=== PATIENT | female | born 1965 | race Caucasian/White ===

== ENCOUNTER 2021-06-19 10:56 | Outpatient (REF) | payer OTHER, SELFPAY ==
--- NOTE | 2021-06-21 10:45 | MHC.AU.ANO ---
Adult Audiological Evaluation Date of Visit: 06/19/21 Personnel Administrator Used: Not Applicable Reason for Appointment: Audiologic evaluation due to tinnitus and dizziness. Glendy reports constant bilateral hissing tinnitus and she has experienced significant dizziness with nausea for approximately 25 years which occurs on a daily basis when looking up or bending over. She notes intermittent extended episodes of up to 3 days. Hearing ability seems poorer in the left ear compared to the right, with speech understanding difficulty particularly when background noise is present. Glendy notes she has an appointment scheduled next month with [employer] Dr. Darren Rich. Does patient feel they have a hearing loss?: Unsure Has hearing been tested previously?: No Hearing Handicap Inventory: HHIE SCORE: 18 Based on HHIE score, patient has: Mild to moderate perceived hearing handicap Ear History: Family History of Hearing Loss?: Yes: Father (left ear) Tinnitus/Ringing/Noises in Ears: Both Ears Ear used on the phone: Right Ear History of occupational noise exposure?: Bartended for 7 years with exposure to loud music History: History: No Medical History: Medical History: Occular migraines, Tobacco Use Medication List: Wellbutrin and Zoloft Otoscopy: Right Ear: Unremarkable Left Ear: Unremarkable Tympanometry: Tympanometry performed due to: To assess integrity of the middle ear system Right Ear: Normal Middle Ear System (Type A) Left Ear: Normal Middle Ear System (Type A) Acoustic Reflexes: Did not perform due to loud sound in the left ear causing ear pain and dizzy sensation Otoacoustic Emissions Frequency Range Used: 1.6-8 kHz Right Ear Results: Present 1977-7305 Hz. Absent 6957-8354 Hz. Analysis: Reduced/Absent emissions suggest cochlear dysfunction Left Ear Results: Present 1600. Absent 8136-5060 Hz. Analysis: Reduced/Absent emissions suggest cochlear dysfunction Hearing Evaluation: Transducer(s) Used: Insert Earphones Bone Conduction Method: Conventional Audiometry Stimuli Used: Pure Tones Right Ear: Description of Hearing: Mild sensorineural hearing loss 250-8000 Hz. Left Ear: Description of Hearing: Mild sloping to moderate sensorineural hearing loss. Speech Recognition Threshold (SRT): Method Used: Monitored Live Voice Stimuli Used: Spondee Words Right Ear: 20 dB HL Left Ear: 30 dB HL Word Discrimination: Method: Recorded Lists Word Lists Used: NU-6 Right Ear: 100% at 60 dB HL Left Ear: 84% at 70 dB HL - GLENDY REPORTED SIGNIFICANT SOUND TOLERANCE DIFFICULTY WITH EAR PAIN AND VERTIGO SENSATION AT THIS LEVEL 100% at 60 dB HL Interpretation of Results: Results indicate asymmetric hearing loss, left ear poorer, with sound tolerance and vertigo sensation experienced at 70 dB HL. Recommendations: - I contacted Dr. Darren Rich's office following today's appointment regarding the results. Due to the asymmetry and symptoms presented today, further work-up is advised. Since Glendy's symptoms are bothersome and insurance benefits change in August, I requested if Dr. Rich could order an imaging study prior to her appointment next month. Glendy will be contacted with the recommended plan. - Advise 6 month audiologic re-evaluation to monitor. Will send a reminder card. Diagnosis: Primary Diagnosis: H90.3 Bilateral Sensorineural Hearing Loss Secondary Diagnosis: H93.13 Tinnitus, Bilateral Services Performed: Comprehensive Audiological Evaluation (CPT 86021) Diagnostic Otoacoustic Emissions (CPT 40620, 26+TC) Tympanometry (CPT 37299) Signature: Provider: Dante Bradley, [facility]
== END 2021-06-19 10:57 | disposition home or self-care (01) ==
LOC: HO.SH 10:56
PROVIDERS: Visit Provider Nurse Practitioner Family
DX: H90.3 Sensorineural hearing loss, bilateral (principal); H93.13 Tinnitus, bilateral
CPT/HCPCS: 92557; 92567; 92588

== ENCOUNTER 2025-02-24 15:00 | Outpatient (RCR) | payer OTHER, SELFPAY | END 2025-03-28 08:18 | disposition home or self-care (01) | LOC: HO.PTCHIC 15:00 | PROVIDERS: PCP Nurse Practitioner Adult Health; Visit Provider Orthopaedic Surgery Orthopaedic Trauma | DX: S83.512D Sprain of anterior cruciate ligament of left knee, subsequent encounter (principal); S83.232D Complex tear of medial meniscus, current injury, left knee, subsequent encounter; X50.1XXD Overexertion from prolonged static or awkward postures, subsequent encounter | CPT/HCPCS: 97110; 97161 ==